=== PATIENT | female | born 1980 | race Caucasian/White ===

== ENCOUNTER 2017-02-10 22:25 | Emergency (ER) | payer OTHER ==
--- NOTE | 2017-02-10 23:01 | ED CLINICAL REPORT ---
Clinical Report - Physicians/Mid Levels [facility] [address] [place] [address] 02/10/2017 22:27 Patient: JUANIS VAZQUEZ Time Seen: 22:37; initial patient contact. Arrived- By private vehicle. Historian- patient. HISTORY OF PRESENT ILLNESS Location of injuries- head. Chief Complaint: INJURY TO HEAD. The injury occurred today. The patient sustained a single light blow with a metal object. Occurred at home. The patient complains of mild pain. The patient sustained a blow to the head and was dazed. No neck pain, loss of consciousness or seizure. REVIEW OF SYSTEMS No numbness, hearing loss, nausea, loss of vision or vomiting. No laceration. All systems otherwise negative, except as recorded above. PAST HISTORY Negative. Problems: no known problems. Surgeries: No history of previous surgery. Additional Surgeries: no known surgeries. Medications: None. Allergies: Percocet. SOCIAL HISTORY Never smoker. Occasional alcohol use. No drug use. ADDITIONAL NOTES The nursing notes have been reviewed. PHYSICAL EXAM Vital Signs: 02/10/2017 22:33 BP: 129/78. HR: 77. RR: 16. O2 saturation: 99%. Temp: 98.5 F. Pain level now: 0/10. Have been reviewed as normal. Appearance: Alert. No acute distress. Head: No Awad's sign or raccoon eyes. Vertex: mild tenderness. No erythema, swelling, laceration, abrasion or ecchymosis. No puncture wound or deformity. Eyes: Pupils equal, round and reactive to light. EOM intact. ENT: No dental injury. Pharynx normal. Neck: Painless ROM. Neck non-tender. Skin: Skin intact. Skin warm and dry. Neuro: Oriented X 3. Mood/affect normal. Speech normal. No motor deficit. No sensory deficit. PROGRESS AND PROCEDURES Disposition: Discharged home in good condition. Condition: good. CLINICAL IMPRESSION Single contusion to the head. INSTRUCTIONS Your Current Medications: CONTINUE TAKING THE FOLLOWING MEDICATIONS: None*. Follow-up: Follow up with your doctor as needed. Call for an appointment. Screening today revealed the patient's blood pressure to be in the pre-hypertensive range. The patient should follow up with a primary care provider for blood pressure management. (Electronically signed by Pepito Sullivan Dr. 02/11/2017 1:41)
--- NOTE | 2017-02-10 23:01 | ED NURSING NOTES ---
Clinical Report - Nurses [facility] [address] [place] [address] 02/10/2017 22:27 Patient: JUANIS VAZQUEZ TRIAGE Triage time 22:32. Acuity: LEVEL 4. Chief Complaint: INJURY TO HEAD. 22:39 02/10/17. Alert. No acute distress. SEPSIS SCREEN: Sepsis Screen. Negative (no infection suspected/documented). ELVA COMA SCORE: Elva Coma Scale: 15- eyes open spontaneously (4); best verbal response- oriented x 4 (5); best motor response- obeys commands (6). --22:39 Osiris Nava R.N. 22:33 02/10/17. BP: 129/78. HR: 77. RR: 16. O2 saturation: 99%. Temp: 98.5 F. Pain level now: 0/10. --22:39 Osiris Nava R.N. Weight: 68 kg stated. Height/Length: 63 inches Per Patient. BMI: 26.6. --22:38 Osiris Nava R.N. Medications None. --22:36 Osiris Nava R.N. Allergies Percocet. --22:36 Osiris Nava R.N. History Arrived by private vehicle. Historian: patient. Accompanied by (). Primary physician ([facility]). This occurred (8:00pm today). Occurred at home. Mechanism of injury: a blow. ( Patient states "I was laying in bed and the wind blew the fan on my window onto my head". She reports that she came in today because she felt like reading to her daughter was more difficult than usual.). No loss of consciousness. Treatment INNOVATION MANAGER: None. PAST MEDICAL HX: Tetanus status: up-to-date. Immunizations: up-to-date. Last normal menstrual period- last month. Denies current . SOCIAL HX: Never smoker. Occasional alcohol use. No drug use. FALL RISK ASSESSMENT: Fall risk assessment completed. No fall risk identified. NUTRITIONAL RISK ASSESSMENT: The nutritional risk assessment revealed no deficiencies. FUNCTIONAL ASSESSMENT: Functional assessment: no impairments noted. LEARNING NEEDS ASSESSMENT: The learning needs assessment revealed no barriers. SKIN INTEGRITY ASSESSMENT: Skin integrity risk assessment completed. No skin integrity risk identified. --22:39 Osiris Nava R.N. PROBLEMS: no known problems. ADDITIONAL SURGERIES: no known surgeries. Interventions ID band on patient. To treatment room. --22:39 Osiris Nava R.N. PHYSICAL ASSESSMENT 22:41 02/10/17. Ambulatory to room. GENERAL / NEURO / PSYCH: Alert. Oriented X 4. Appears in no acute distress. HEENT: Head non-tender. Pupils equal, round and reactive to light. EOM intact. Voice within normal limits. No swelling of head. Mucous membranes are pink. RESPIRATORY: Respirations not labored. CVS: Capillary refill less than 2 seconds. BACK: No neck or back tenderness. ROM normal to the neck and back. SKIN: Skin is warm and dry. --22:41 Osiris Nava R.N. NURSING PROGRESS NOTES 22:41 02/10/17. Two patient identifiers checked. Call light placed in reach. Side rails up x 1. Bed placed in lowest position. Brakes of bed on. Patient ready for evaluation- chart flagged and notification provided. --22:41 Osiris Nava R.N. ( Patient provided ice for head.). --22:44 Osiris Nava R.N. DISPOSITION / DISCHARGE 23:06 02/10/17. No learning barriers present. Discharge instructions provided and reviewed with the patient and spouse. Reviewed warnings. Activity restrictions reviewed. Patient verbalized understanding. Written instructions provided in Tajik. The patient was discharged home and accompanied by spouse. She left the Emergency Department ambulatory and via private vehicle. Spouse driving. --23:06 Osiris Nava R.N. 22:33 02/10/17. BP: 129/78. HR: 77. RR: 16. O2 saturation: 99%. Temp: 98.5 F. Pain level now: 0/10. --23:06 Osiris Nava R.N. <<STRICKEN ENTRY-- Departure time: 22:06. --23:06 Osiris Nava R.N. --END STRIKE>> Correction --23:06 Osiris Nava R.N. Departure time: 23:06. --23:06 Osiris Nava R.N. Locked/Released at 02/11/2017 2:08 by Osiris Nava R.N.
--- NOTE | 2017-02-10 23:01 | ED CLINICAL REPORT ---
Clinical Report - Physicians/Mid Levels [facility] [address] [place] [address] 02/10/2017 22:27 Patient: JUANIS VAZQUEZ Time Seen: 22:37; initial patient contact. Arrived- By private vehicle. Historian- patient. HISTORY OF PRESENT ILLNESS Location of injuries- head. Chief Complaint: INJURY TO HEAD. The injury occurred today. The patient sustained a single light blow with a metal object. Occurred at home. The patient complains of mild pain. The patient sustained a blow to the head and was dazed. No neck pain, loss of consciousness or seizure. REVIEW OF SYSTEMS No numbness, hearing loss, nausea, loss of vision or vomiting. No laceration. All systems otherwise negative, except as recorded above. PAST HISTORY Negative. Problems: no known problems. Surgeries: No history of previous surgery. Additional Surgeries: no known surgeries. Medications: None. Allergies: Percocet. SOCIAL HISTORY Never smoker. Occasional alcohol use. No drug use. ADDITIONAL NOTES The nursing notes have been reviewed. PHYSICAL EXAM Vital Signs: 02/10/2017 22:33 BP: 129/78. HR: 77. RR: 16. O2 saturation: 99%. Temp: 98.5 F. Pain level now: 0/10. Have been reviewed as normal. Appearance: Alert. No acute distress. Head: No Awad's sign or raccoon eyes. Vertex: mild tenderness. No erythema, swelling, laceration, abrasion or ecchymosis. No puncture wound or deformity. Eyes: Pupils equal, round and reactive to light. EOM intact. ENT: No dental injury. Pharynx normal. Neck: Painless ROM. Neck non-tender. Skin: Skin intact. Skin warm and dry. Neuro: Oriented X 3. Mood/affect normal. Speech normal. No motor deficit. No sensory deficit. PROGRESS AND PROCEDURES Disposition: Discharged home in good condition. Condition: good. CLINICAL IMPRESSION Single contusion to the head. INSTRUCTIONS Your Current Medications: CONTINUE TAKING THE FOLLOWING MEDICATIONS: None*. Follow-up: Follow up with your doctor as needed. Call for an appointment. Screening today revealed the patient's blood pressure to be in the pre-hypertensive range. The patient should follow up with a primary care provider for blood pressure management. (Electronically signed by Pepito Sullivan Dr. 02/11/2017 1:41)
--- NOTE | 2017-02-10 23:01 | ED NURSING NOTES ---
Clinical Report - Nurses [facility] [address] [place] [place] [address] 02/10/2017 22:27 Patient: JUANIS VAZQUEZ TRIAGE Triage time 22:32. Acuity: LEVEL 4. Chief Complaint: INJURY TO HEAD. 22:39 02/10/17. Alert. No acute distress. SEPSIS SCREEN: Sepsis Screen. Negative (no infection suspected/documented). ELVA COMA SCORE: Elva Coma Scale: 15- eyes open spontaneously (4); best verbal response- oriented x 4 (5); best motor response- obeys commands (6). --22:39 Osiris Nava R.N. 22:33 02/10/17. BP: 129/78. HR: 77. RR: 16. O2 saturation: 99%. Temp: 98.5 F. Pain level now: 0/10. --22:39 Osiris Nava R.N. Weight: 68 kg stated. Height/Length: 63 inches Per Patient. BMI: 26.6. --22:38 Osiris Nava R.N. Medications None. --22:36 Osiris Nava R.N. Allergies Percocet. --22:36 Osiris Nava R.N. History Arrived by private vehicle. Historian: patient. Accompanied by (). Primary physician ([facility]). This occurred (8:00pm today). Occurred at home. Mechanism of injury: a blow. ( Patient states "I was laying in bed and the wind blew the fan on my window onto my head". She reports that she came in today because she felt like reading to her daughter was more difficult than usual.). No loss of consciousness. Treatment GRADUATE RESEARCH ASSISTANT: None. PAST MEDICAL HX: Tetanus status: up-to-date. Immunizations: up-to-date. Last normal menstrual period- last month. Denies current . SOCIAL HX: Never smoker. Occasional alcohol use. No drug use. FALL RISK ASSESSMENT: Fall risk assessment completed. No fall risk identified. NUTRITIONAL RISK ASSESSMENT: The nutritional risk assessment revealed no deficiencies. FUNCTIONAL ASSESSMENT: Functional assessment: no impairments noted. LEARNING NEEDS ASSESSMENT: The learning needs assessment revealed no barriers. SKIN INTEGRITY ASSESSMENT: Skin integrity risk assessment completed. No skin integrity risk identified. --22:39 Osiris Nava R.N. PROBLEMS: no known problems. ADDITIONAL SURGERIES: no known surgeries. Interventions ID band on patient. To treatment room. --22:39 Osiris Nava R.N. PHYSICAL ASSESSMENT 22:41 02/10/17. Ambulatory to room. GENERAL / NEURO / PSYCH: Alert. Oriented X 4. Appears in no acute distress. HEENT: Head non-tender. Pupils equal, round and reactive to light. EOM intact. Voice within normal limits. No swelling of head. Mucous membranes are pink. RESPIRATORY: Respirations not labored. CVS: Capillary refill less than 2 seconds. BACK: No neck or back tenderness. ROM normal to the neck and back. SKIN: Skin is warm and dry. --22:41 Osiris Nava R.N. NURSING PROGRESS NOTES 22:41 02/10/17. Two patient identifiers checked. Call light placed in reach. Side rails up x 1. Bed placed in lowest position. Brakes of bed on. Patient ready for evaluation- chart flagged and notification provided. --22:41 Osiris Nava R.N. ( Patient provided ice for head.). --22:44 Osiris Nava R.N. DISPOSITION / DISCHARGE 23:06 02/10/17. No learning barriers present. Discharge instructions provided and reviewed with the patient and spouse. Reviewed warnings. Activity restrictions reviewed. Patient verbalized understanding. Written instructions provided in Uzbek. The patient was discharged home and accompanied by spouse. She left the Emergency Department ambulatory and via private vehicle. Spouse driving. --23:06 Osiris Nava R.N. 22:33 02/10/17. BP: 129/78. HR: 77. RR: 16. O2 saturation: 99%. Temp: 98.5 F. Pain level now: 0/10. --23:06 Osiris Nava R.N. <<STRICKEN ENTRY-- Departure time: 22:06. --23:06 Osiris Nava R.N. --END STRIKE>> Correction --23:06 Osiris Nava R.N. Departure time: 23:06. --23:06 Osiris Nava R.N. Locked/Released at 02/11/2017 2:08 by Osiris Nava R.N.
--- NOTE | 2017-02-11 02:08 | ED MAR SUMMARY ---
..... Medication Administration Record [facility] [address], [place] [id number] Patient: JUANIS VAZQUEZ Visit ID: [id number] 36y, F Weight: 68.0 kg Height/Length: 63 in BMI: 26.6 ALLERGIES: Percocet
--- NOTE | 2017-02-11 02:08 | ED MAR SUMMARY ---
..... Medication Administration Record [facility] [address], [place] [id number] Patient: JUANIS VAZQUEZ Visit ID: [id number] 36y, F Weight: 68.0 kg Height/Length: 63 in BMI: 26.6 ALLERGIES: Percocet
--- NOTE | 2017-02-11 02:08 | ED DISCHARGE INSTRUCTIONS ---
Patient: JUANIS VAZQUEZ General Instructions Located Within [facility] VisitID: [id number] [place] [address] 36y, F Registration Date/Time: 02/10/2017 Single contusion to the head. INSTRUCTIONS Your Current Medications: CONTINUE TAKING THE FOLLOWING MEDICATIONS: None*. Follow-up: Follow up with your doctor as needed. Call for an appointment. Screening today revealed the patient's blood pressure to be in the pre-hypertensive range. The patient should follow up with a primary care provider for blood pressure management. ADDITIONAL INFORMATION Scalp Contusion [No Wake-Up] A scalp contusion is a bruise with swelling and sometimes bleeding under the skin. The swelling should start to go down within two days. Although there is no sign of a serious injury at this time, symptoms may appear later. These could be a sign of a more serious problem (bruising or bleeding in the brain). Therefore, watch for the warning signs below. Home Care: During the next 24 hours someone must stay with you to check for the signs below. It is not necessary to stay awake or be awakened during the night. If you have swelling of the face or scalp, apply an ice pack (ice cubes in a plastic bag, wrapped in a towel) for 20 minutes. Do this every 1-2 hours until the swelling starts to go down. You may use acetaminophen (Tylenol) or ibuprofen (Motrin, Advil) to control pain, unless another pain medicine was prescribed. [ NOTE : If you have chronic liver or kidney disease or ever had a stomach ulcer or GI bleeding, talk with your doctor before using these medicines.] For the next 24 hours: Do not take alcohol, sedatives or medicines that make you sleepy. Do not drive or operate machinery. Avoid strenuous activities. No lifting or straining. If you have had any symptoms of a concussion today (nausea, vomiting, dizziness, confusion, headache, memory loss or if you were knocked out), do not return to sports or any activity that could result in another head injury until all symptoms are gone and you have been cleared by your doctor. A second head injury before fully recovering from the first one can lead to serious brain injury. Follow Up with your doctor if symptoms are not improving after 24 hours, or as directed. [NOTE: Any X-rays or CT scans taken will be reviewed by a radiologist. You will be notified of any new findings that may affect your care.] Get Prompt Medical Attention if any of the following occur: Repeated vomiting Severe or worsening headache or dizziness Unusual drowsiness, or unable to awaken as usual Confusion or change in behavior or speech, memory loss, blurred vision Convulsion (seizure) Increasing scalp or face swelling Redness, warmth or pus from the swollen area Fluid drainage or bleeding from the nose or ears Fever of 100.4F(38C) or higher, or as directed by your healthcare provider You have been given the following additional information: Scalp Contusion, No Wake Up (Electronically signed by Pepito Sullivan Dr. 02/11/2017 1:41)
--- NOTE | 2017-02-11 02:08 | ED MED RECONCILIATION SUMMARY ---
Patient: JUANIS VAZQUEZ Medication Reconciliation Report [facility] VisitID: [id number] [address] [place] [address] 36y, F Registration Date/Time: 02/10/2017 Weight: 68.0 kg Height/Length: 63 in. BMI: 26.6 ALLERGIES: Percocet The patient's Home Medications are listed below: NONE. The source(s) of the original Home Medication information: Not obtained. The following Medications were given to the patient in the Emergency Department: None. The following Medications were prescribed to the patient: None.
--- NOTE | 2017-02-11 02:08 | ED MED RECONCILIATION SUMMARY ---
Patient: JUANIS VAZQUEZ Medication Reconciliation Report [facility] VisitID: [id number] [address] [place] [address] 36y, F Registration Date/Time: 02/10/2017 Weight: 68.0 kg Height/Length: 63 in. BMI: 26.6 ALLERGIES: Percocet The patient's Home Medications are listed below: NONE. The source(s) of the original Home Medication information: Not obtained. The following Medications were given to the patient in the Emergency Department: None. The following Medications were prescribed to the patient: None.
== END 2017-02-10 23:06 | disposition home or self-care (01) ==
LOC: ED SRH 22:25
DX: S00.93XA Contusion of unspecified part of head, initial encounter (principal); W22.8XXA Striking against or struck by other objects, initial encounter; Y93.9 Activity, unspecified; Y99.9 Unspecified external cause status; Y92.009 Unspecified place in unspecified non-institutional (private) residence as the place of occurrence of the external cause; Z88.5 Allergy status to narcotic agent